=== PATIENT | male | born 1995 | race Caucasian/White ===

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

== ENCOUNTER 2023-09-18 16:54 | Observation (INO) ==
--- OUTSIDE RECORDS SUMMARY | 2023-09-18 17:00 | External Medical Summary | Summary of Care ---
Author Name Unknown Organization [facility] Address [address] [place] [address] Phone [phone] Care Team Providers Care Cardiology Technician Name Role Phone Dakota Meneses MD Primary Care Provider Reason for Visit * Reason Comments Outpatient Testing Encounter Details Date Type Department Care Team Description 05/13/2023 Laboratory Laboratory, [place] [address] [place] [address] [place] [address] [place] [address] GAURAV (generalized anxiety disorder) Allergies Active Allergy Reactions Severity Noted Date Comments Penicillins 07/07/1999 Azithromycin Rash Low 11/30/2007 documented as of this encounter (statuses as of 05/13/2023) Medications No known medicationsdocumented as of this encounter (statuses as of 05/13/2023) Active Problems Problem Noted Date Current moderate episode of major depressive disorder without prior episode 07/28/2020 Palpitations 10/04/2014 Pruritus 03/20/2013 Chigger bites 03/20/2013 HYPERTROPHY TONSILS - cryptic tonsils ADVANCE DIRECTIVE INFORMATION 06/04/2005 Overview: Not applicable (under age of 18) Other diseases of respiratory system, no t elsewhere classified Dyspnea and respiratory abnormality Overview: ICD-10 update of inactive term Sleep apnea Hypertrophy of tonsils and adenoids documented as of this encounter (statuses as of 05/13/2023) Resolved Problems Problem Noted Date Resolved Date Palpitations 10/04/2014 10/04/2014 documented as of this encounter (statuses as of 05/13/2023) Immunizations Name Administration Dates Next Due H1N1 2008 Influenza, Intranasal 08/17/2009 Meningococcal Conjugate Vaccine (Menactra/Menveo ) 10/03/2017,08/07/2013 Seasonal Influenza, Quadriva lent, No Preserve, 6 Mons & Above, IM 11/06/2021,10/03/2017 TD, Preservative Free 12/07/2021 TDAP (age 11 and older)(Adacel) 05/10/2011 Varicella Vaccine (Chicken Pox) 05/10/2011 documented as of this encounter Social History Tobacco Use Types Packs/Day Years Used Date Smoking Tobacco: Never Smokeless Tobacco: Never Comments:Mother smokes outsi de, Father's girlfriend smokes Alcohol Use Standard Drinks/Week Comments No 0 (1 standard drink = 0.6 oz pur e alcohol) Sex Assigned at Date Recorded Not on file Job Start Date Occupation Industry Not on file Not on file Not on file documented as of this encounter Plan of Treatment Pending Results Name Type Priority Associated Diagnoses Date /Time TSH WITH FREE T4 IF INDICATED Lab Routine GAURAV (generalized anxiety disorder) 05/13/2023 8:39 AM EDT Health Maintenance Due Date Last Done Comments COVID-19 Vaccine (#1) 01/02/1998 GARDASIL-HPV IMMUNIZATION SERIES (1 - Male 2-dose series) 2008 HIV Screening 2012 Hepatitis C Screening 2015 Depression Screening, Annual for Pts 12 and Over 06/30/2018 06/30/2017 Influenza Vaccine (FLU shot) (#1) 2023 11/06/2021, 10/03/2017 DTaP,Tdap,and Td Vaccines (8 - Td or Tdap) 12/07/2031 12/07/2021, 05/10/2011, 09/19/2001, Additional history exists Hepatitis B Completed 01/28/1998, 09/16, 1997 MENINGOCOCCAL (MENACTRA/MENVEO) Completed 10/03/2017, 08/07/2013 Pneumococcal Vaccine: Pediatrics (0 to 5 Years) and At-Risk Patients (6 to 64 Years) Aged Out No longer eligible based on patient's age to complete this topic documented as of this encounter Medical Devices Not on filedocumented as of this encounter Visit Diagnoses Diagnosis GAURAV (generalized anxiety disorder) Generalized anxiety disorder documented in this encounter Care Teams Cardiology Technician Relationship Specialty Start Date End Date Dakota Meneses MD [address] [place] [address] PCP - General 04/08/04 documented as of this encounter
--- OUTSIDE RECORDS SUMMARY | 2023-09-18 17:00 | External Medical Summary ---
Author Name Unknown Address Unknown Organization [id number]:[facility] [place] [address] [place] [address] Laboratory Report Ordering Provider Test Date Status DASHA MATT 05/13/2023 08:39:30 Final Observation Date Value Abnormality Reference (Units ) Status TSH 05/13/2023 08:39:30 0.69 0.27-4.20 (uIU/mL) Final Performing Location [facility] - [address] [place] [address]
[2023-09-18] MEDS ORDERED: ACETAMINOPHEN 1,000 MG/100 ML VIAL IV STA (17:13)
[2023-09-18] MEDS: SODIUM CHLORIDE 0.9% 1,000 ML IV SCH ×2 (17:19→17:57)
--- NOTE | 2023-09-18 17:24 | Emergency Department Note ---
History of Present Illness General Chief complaint: Syncope (Near Syncope) Stated complaint: SYNCOPE, FEVER, CHILLS, TINGLING HANDS, BODY ACHES Time Seen by Provider: 09/18/23 17:09 History of Present Illness Maximum Pain Intensity: 4 28-year-old male who presents to the emergency department accompanied by dad for evaluation of fever, body aches, near syncope. Patient states for the last 4 to 5 days he has been dealing with constipation. He took MiraLAX 3 times and had multiple bowel movements today. He states prior to that he had not had a bowel movement since Tuesday. He notes since 3 PM today he has been having fevers, chills, nausea, generalized bodyaches, and tingling in his hands. He reports feeling very lightheaded today and almost passing out prompting evaluation. He did not lose consciousness. He denies any recent cold-like symptoms including sinus congestion, cough, sore throat, ear pain. He denies chest pain, shortness of breath or abdominal pain. No diarrhea or urinary symptoms. Denies headache, neck pain, visual changes, light sensitivity, rashes anywhere. Father notes that patient appeared to be very lethargic and confused today prompting evaluation. Prior to today and his episodes of constipation, patient has been feeling well. He denies any significant past medical history and does not take any medications at home. Father does note that they have an outside cat that sleeps with the son and there is a chance for tick bites. No other known sick contacts. He reports an allergy to penicillin and azithromycin with reaction of a rash. He has not taken anything prior to arrival. Home Medications Medication Instructions Recorded Confirmed Type acetaminophen 500 mg tablet 1,000 mg PO Q6H PRN Fever Or Pain 05/24/20 09/18/23 History (Tylenol Extra Strength) diphenhydramine HCl 25 mg capsule 50 mg PO Q6H PRN Allergic Reaction 05/24/20 09/18/23 History (Benadryl) ibuprofen 200 mg tablet 800 mg PO Q8H PRN Fever Or Pain 05/24/20 09/18/23 History polyethylene glycol 3350 17 17 g PO DAILY 09/18/23 09/18/23 History gram/dose oral powder (Miralax) doxycycline hyclate 100 mg capsule 100 mg PO BID #20 caps 09/20/23 Rx Allergies Allergy/AdvReac Type Severity Reaction Status Date / Time Penicillins Allergy Intermediate Rash Verified 09/18/23 18:56 azithromycin [From Zithromax] Allergy Unknown Unknown Verified 09/18/23 18:56 Past Med/Surg History Medical History (Updated 09/20/23 @ 15:19 by Greg Kebede MD) Palpitations Cryptic tonsil Sleep apnea Depression Nausea, vomiting, and diarrhea Surgical History No pertinent past surgical history Family History Other Crohn's disease Hypertension Social History Smoking Status: Never smoker Hx Alcohol Use: Yes Hx Substance Use: No Preferred Language: Malaysian Communication Ability: Effective History Teacher Required: No Beliefs That Will Affect Care: None Current Living Situation: Family Other Information That Helps Us Care for You: No Feels Safe at Home: Yes Safety Concerns: Feels Safe At This Time Assistive Devices: None Physical Exam Vital Signs Vital Signs - 24 hr 09/18/23 16:59 09/18/23 17:12 09/18/23 17:14 Temperature 37.8 C H 39.6 C H Temperature Source Temporal Artery Scan Oral Pulse Rate 106 H 105 H Pulse Rate [Left Finger] 105 H Pulse Rhythm Regular Pulse Strength Normal Respiratory Rate 20 26 H Respiratory Effort / Characteristics Non-Labored Spontaneous Respiratory Depth Normal Respiratory Pattern Regular Blood Pressure 94/47 L Blood Pressure Mean 62 Blood Pressure Position Sitting Pulse Oximetry 97 99 Oxygen Delivery Method Room Air Sepsis Recent Fever Within 48 Hours No Sepsis New/Unexplained Change in Mental Status No Sepsis Action Taken by Nursing Physician Notified Constitutional: alert and oriented x3. no acute distress. Lethargic, ill- appearing but nontoxic. HEENT: normocephalic, atraumatic. normal conjunctiva.PERRLA. EOM's grossly intact. TMs pearly hobson without effusion. Oropharynx widely patent. Posterior pharynx pink, posterior tonsils nonenlarged without exudate mucus membranes moist Neck: neck is supple, nontender. Midline C-spine nontender. No meningeal signs Respiratory: lungs are clear to auscultation without wheezes, rhonchi, or rales bilaterally. equal chest rise. normal respiratory effort, no accessory muscle use. Cardiovascular: normal heart sounds without murmur. regular rate and rhythm. GI: abdomen is soft, nondistended. Voluntary guarding. No focal tenderness. No palpable masses. No rebound tenderness or guarding. No CVA tenderness MSK: Moves all 4 extremities spontaneously. Strength +5 and equal throughout all 4 extremities Peripheral vascular: extremities warm and well perfused with palpable pulses. Neuro: without focal neuro deficits. GCS 15. Slow to answer questions but responds appropriately. Follows commands. CNII-XII intact. Speech clear, tongue midline, without facial droop. Strength equal throughout all for extremities. Psych:appropriate mood and affect. Course Administered Medications Discontinued Medications Acetaminophen (Acetaminophen 325 Mg Tab) 650 mg PO QID PRN PRN Reason: pain/fever Stop: 10/18/23 20:31 Last Admin: 09/19/23 11:16 Dose: 650 mg Documented By: Admin: 09/19/23 01:28 Dose: 650 mg Documented By: Doxycycline Hyclate (Doxycycline Hyclate 100 Mg Cap) 100 mg PO BID [facility] Stop: 09/29/23 08:59 Last Admin: 09/20/23 09:23 Dose: 100 mg Documented By: Admin: 09/19/23 19:56 Dose: 100 mg Documented By: Admin: 09/19/23 08:18 Dose: 100 mg Documented By: MARIE Sodium Chloride (Nss) 1,000 mls @ 999 mls/hr IV .Q1H1M MARSHA Stop: 09/18/23 19:15 Last Infusion: 09/18/23 19:16 Dose: Infused Documented By: Admin: 09/18/23 17:57 Dose: 999 mls/hr Documented By: Infusion: 09/18/23 17:57 Dose: Infused Documented By: Admin: 09/18/23 17:19 Dose: 999 mls/hr Documented By: HERB Acetaminophen (Ofirmev) 1,000 mg in 100 mls @ 400 mls/hr IV NOW STA Stop: 09/18/23 17:27 Last Infusion: 09/18/23 17:43 Dose: Infused Documented By: Admin: 09/18/23 17:23 Dose: 400 mls/hr Documented By: JOVON Vancomycin HCl 1,500 mg/ (Sodium Chloride) 530 mls @ 200 mls/hr IV NOW ONE Stop: 09/18/23 20:09 Last Infusion: 09/18/23 22:40 Dose: Infused Documented By: Admin: 09/18/23 18:51 Dose: 200 mls/hr Documented By: HERB Cefepime HCl (Maxipime) 2,000 mg in 20 mls @ 5 mls/min IV NOW STA; Protocol Stop: 09/18/23 17:34 Last Admin: 09/18/23 17:44 Dose: 5 mls/min Documented By: JOVON Doxycycline Hyclate 100 mg/ (Dextrose) 100 mls @ 50 mls/hr IV NOW STA Stop: 09/18/23 21:43 Last Infusion: 09/19/23 01:25 Dose: Infused Documented By: Admin: 09/18/23 21:06 Dose: 50 mls/hr Documented By: Magnesium Sulfate/Dextrose (Magnesium Sulfate / D5w) 1 gm in 100 mls @ 50 mls/hr IV ONE ONE Stop: 09/18/23 21:59 Last Infusion: 09/19/23 01:25 Dose: Infused Documented By: Admin: 09/18/23 22:08 Dose: 50 mls/hr Documented By: Potassium Chloride/Sodium Chloride (Normal Saline W/20 Meq Kcl) 20 meq in 1,000 mls @ 100 mls/hr IV .Q10H ONE; Protocol Stop: 09/19/23 05:38 Last Infusion: 09/19/23 07:10 Dose: Infused Documented By: Admin: 09/18/23 21:06 Dose: 100 mls/hr Documented By: Magnesium Sulfate/Dextrose (Magnesium Sulfate / D5w) 1 gm in 100 mls @ 50 mls/hr IV ONE ONE Stop: 09/19/23 00:14 Last Infusion: 09/19/23 03:24 Dose: Infused Documented By: Admin: 09/19/23 01:31 Dose: 50 mls/hr Documented By: Potassium Chloride/Sodium Chloride (Normal Saline W/20 Meq Kcl) 20 meq in 1,000 mls @ 100 mls/hr IV .Q10H ONE; Protocol Stop: 09/19/23 15:59 Last Infusion: 09/19/23 17:41 Dose: Infused Documented By: Admin: 09/19/23 07:16 Dose: 100 mls/hr Documented By: MARIE Ceftriaxone Sodium 1,000 mg/ (Dextrose) 50 mls @ 100 mls/hr IV Q24H MARSHA; Protocol Stop: 09/21/23 17:14 Last Infusion: 09/20/23 17:13 Dose: Infused Documented By: Admin: 09/20/23 16:39 Dose: 100 mls/hr Documented By: Infusion: 09/19/23 19:24 Dose: Infused Documented By: Admin: 09/19/23 18:23 Dose: 100 mls/hr Documented By: RIVERA Sodium Chloride (Nss) 1,000 mls @ 125 mls/hr IV .Q8H MARSHA Stop: 09/20/23 11:59 Last Infusion: 09/20/23 12:07 Dose: Infused Documented By: Admin: 09/20/23 03:58 Dose: 125 mls/hr Documented By: Infusion: 09/20/23 03:58 Dose: Infused Documented By: Admin: 09/19/23 20:10 Dose: 125 mls/hr Documented By: JERI Sodium Chloride (Nss) 500 mls @ 999 mls/hr IV .Q31M ONE Stop: 09/19/23 19:50 Last Infusion: 09/19/23 20:11 Dose: Infused Documented By: Admin: 09/19/23 19:40 Dose: 999 mls/hr Documented By: JERI Ibuprofen (Ibuprofen 200 Mg Tab) 200 mg PO Q6H PRN PRN Reason: pain not relieved by tylenol Stop: 10/18/23 20:31 Last Admin: 09/19/23 03:22 Dose: 200 mg Documented By: AKANKSHA Ibuprofen (Ibuprofen 600 Mg Tab) 600 mg PO Q6H PRN PRN Reason: Moderate Pain (Scale 4, 5, 6) Stop: 10/18/23 20:31 Last Admin: 09/19/23 17:46 Dose: 600 mg Documented By: CHIRAG Ioversol (Optiray 320 500ml) 90 ml IV ONCE ONE Stop: 09/18/23 18:40 Last Admin: 09/18/23 18:39 Dose: 90 ml Documented By: SANDHYA Potassium Chloride (Potassium Chloride Crtab 20 Meq Tabcr) 40 meq PO NOW STA Stop: 09/18/23 19:39 Last Admin: 09/18/23 20:29 Dose: 40 meq Documented By: Senna/Docusate Sodium (Docusate Sodium/Senna 50/8.6mg Tab) 1 tab PO QAM MARSHA Stop: 10/19/23 08:59 Last Admin: 09/20/23 09:23 Dose: 1 tab Documented By: Admin: 09/19/23 08:18 Dose: 1 tab Documented By: MARIE Medical Decision Making Differential Diagnosis Pneumonia, diverticulitis, appendicitis, urinary tract infection, acute cholecystitis, meningitis, sepsis, electrolyte abnormalities, anemia, tickborne illness as well as other pathology Laboratory Data Attestation: I reviewed the patient's lab results. 09/20/23 06:20 09/20/23 06:20 Lab Results 09/18/23 09/18/23 09/18/23 Range/Units 17:18 17:22 18:04 WBC 5.05 (4.8-10.8) K/ul RBC 5.07 (4.70-6.10) M/uL Hgb 15.4 (14.0-18.0) g/dl Hct 42.8 (42.0-52.0) % MCV 84.4 (80.0-100.0) fL MCH 30.4 (25.0-34.0) pg MCHC 36.0 (32.0-36.0) g/dL RDW Std Deviation 35.8 L (36.4-46.3) fL RDW Coeff of Howard 11.8 (11.5-14.5) % Plt Count 222 (130-400) K/uL MPV 9.4 (9.4-12.4) fL Immature Gran % (Auto) 0.2 % Neut % (Auto) 85.1 % Lymph % (Auto) 11.3 % [place] % (Auto) 2.4 % Eos % (Auto) 0.6 % Baso % (Auto) 0.4 % Neut # (Auto) 4.30 (1.40-6.50) K/uL Lymph # (Auto) 0.57 L (1.20-3.40) K/uL [place] # (Auto) 0.12 (0.11-0.59) K/uL Eos # (Auto) 0.03 (0.00-0.50) K/uL Baso # (Auto) 0.02 (0.00-0.20) K/uL Immature Gran # (Auto) 0.01 (0.01-0.20) K/uL Sodium 136 (136-145) mmol/L Potassium 3.4 L (3.5-5.1) mmol/L Chloride 101 (98-107) mmol/L Carbon Dioxide 24 (21-32) mmol/L Anion Gap 11 (3-11) BUN 23 (6-23) mg/dl Creatinine 1.03 (0.6-1.4) mg/dl Est Cr Clr Drug Dosing 91.6 ml/min Est GFR ( Amer) 115.7 ml/min Est GFR (Non-Af Amer) 99.8 ml/min BUN/Creatinine Ratio 22.3 H (10-20) Glucose 138 H (70-99(Fasting)) mg/dl Lactate 2.9 H* (0.4-2.0) mmol/L Calcium 8.9 (8.6-10.3) mg/dl Magnesium 1.5 L (1.7-2.4) mg/dl Total Bilirubin 1.2 H (0.2-1.0) mg/dl AST 20 (13-39) U/L ALT 30 (7-52) U/L Alkaline Phosphatase 62 (34-104) U/L Troponin I High Sens 3.6 (0-20) pg/ml Total Protein 6.7 (6.0-8.3) gm/dl Albumin 4.5 (3.4-5.0) gm/dl Globulin 2.2 L (2.5-4.0) gm/dl Albumin/Globulin Ratio 2.0 (0.9-2) Lipase 10 L (11-82) U/L Procalcitonin 0.14 (0-0.5) ng/ml TSH 1.278 (0.300-4.500) uIu/ml Urine Color Yellow Urine Appearance Clear (Clear) Urine pH 5.5 (4.5-7.5) Ur Specific Addy 1.024 (1.000-1.030) Urine Protein Negative (Negative) Urine Glucose (UA) Negative (Negative) Urine Ketones Negative (Negative) Urine Blood Negative (Negative) Urine Nitrite Negative (Negative) Urine Bilirubin Negative (Negative) Urine Urobilinogen Negative (Negative) Ur Leukocyte Esterase Negative (Negative) Adenovirus (PCR) Not Detected (NotDetected) Anaplasma Smear See Comment Babesia Smear See Comment B. pertussis DNA (PCR) Not Detected (NotDetected) B.parapertussis DNA PCR Not Detected (NotDetected) Lyme Disease IgG Ab Negative (Negative) Lyme Disease IgM Ab Equivocal A (Negative) C. pneumoniae DNA (PCR) Not Detected (NotDetected) Coronavirus OC43 (PCR) Not Detected (NotDetected) Coronavirus HKU1 (PCR) Not Detected (NotDetected) Coronavirus 229E (PCR) Not Detected (NotDetected) SARS-CoV-2 (PCR) Not Detected (NotDetected) Coronavirus NL63 (PCR) Not Detected (NotDetected) Monoscreen Negative (Negative) Human Metapneumovir PCR Not Detected (NotDetected) Influenza Type A (PCR) Not Detected (NotDetected) Influenza Type B (PCR) Not Detected (NotDetected) M. pneumoniae (PCR) Not Detected (NotDetected) Parainfluenza 1 (PCR) Not Detected (NotDetected) Parainfluenza 2 (PCR) Not Detected (NotDetected) Parainfluenza 3 (PCR) Not Detected (NotDetected) Parainfluenza 4 (PCR) Not Detected (NotDetected) RSV (PCR) Not Detected (NotDetected) Entero/Rhino (PCR) Not Detected (NotDetected) 09/18/23 Range/Units 19:04 WBC (4.8-10.8) K/ul RBC (4.70-6.10) M/uL Hgb (14.0-18.0) g/dl Hct (42.0-52.0) % MCV (80.0-100.0) fL MCH (25.0-34.0) pg MCHC (32.0-36.0) g/dL RDW Std Deviation (36.4-46.3) fL RDW Coeff of Howard (11.5-14.5) % Plt Count (130-400) K/uL MPV (9.4-12.4) fL Immature Gran % (Auto) % Neut % (Auto) % Lymph % (Auto) % [place] % (Auto) % Eos % (Auto) % Baso % (Auto) % Neut # (Auto) (1.40-6.50) K/uL Lymph # (Auto) (1.20-3.40) K/uL [place] # (Auto) (0.11-0.59) K/uL Eos # (Auto) (0.00-0.50) K/uL Baso # (Auto) (0.00-0.20) K/uL Immature Gran # (Auto) (0.01-0.20) K/uL Sodium (136-145) mmol/L Potassium (3.5-5.1) mmol/L Chloride (98-107) mmol/L Carbon Dioxide (21-32) mmol/L Anion Gap (3-11) BUN (6-23) mg/dl Creatinine (0.6-1.4) mg/dl Est Cr Clr Drug Dosing ml/min Est GFR ( Amer) ml/min Est GFR (Non-Af Amer) ml/min BUN/Creatinine Ratio (10-20) Glucose (70-99(Fasting)) mg/dl Lactate 1.1 (0.4-2.0) mmol/L Calcium (8.6-10.3) mg/dl Magnesium (1.7-2.4) mg/dl Total Bilirubin (0.2-1.0) mg/dl AST (13-39) U/L ALT (7-52) U/L Alkaline Phosphatase (34-104) U/L Troponin I High Sens (0-20) pg/ml Total Protein (6.0-8.3) gm/dl Albumin (3.4-5.0) gm/dl Globulin (2.5-4.0) gm/dl Albumin/Globulin Ratio (0.9-2) Lipase (11-82) U/L Procalcitonin (0-0.5) ng/ml TSH (0.300-4.500) uIu/ml Urine Color Urine Appearance (Clear) Urine pH (4.5-7.5) Ur Specific Addy (1.000-1.030) Urine Protein (Negative) Urine Glucose (UA) (Negative) Urine Ketones (Negative) Urine Blood (Negative) Urine Nitrite (Negative) Urine Bilirubin (Negative) Urine Urobilinogen (Negative) Ur Leukocyte Esterase (Negative) Adenovirus (PCR) (NotDetected) Anaplasma Smear Babesia Smear B. pertussis DNA (PCR) (NotDetected) B.parapertussis DNA PCR (NotDetected) Lyme Disease IgG Ab (Negative) Lyme Disease IgM Ab (Negative) C. pneumoniae DNA (PCR) (NotDetected) Coronavirus OC43 (PCR) (NotDetected) Coronavirus HKU1 (PCR) (NotDetected) Coronavirus 229E (PCR) (NotDetected) SARS-CoV-2 (PCR) (NotDetected) Coronavirus NL63 (PCR) (NotDetected) Monoscreen (Negative) Human Metapneumovir PCR (NotDetected) Influenza Type A (PCR) (NotDetected) Influenza Type B (PCR) (NotDetected) M. pneumoniae (PCR) (NotDetected) Parainfluenza 1 (PCR) (NotDetected) Parainfluenza 2 (PCR) (NotDetected) Parainfluenza 3 (PCR) (NotDetected) Parainfluenza 4 (PCR) (NotDetected) RSV (PCR) (NotDetected) Entero/Rhino (PCR) (NotDetected) Imaging Data Radiologist's Impression: Chest X-Ray 09/18/23 17:09 XR chest 1V portable HISTORY: fever COMPARISON: Chest and abdominal series 10/19/2016. FINDINGS: The lungs are clear. Cardiac silhouette is normal in size. No pleural effusions. No pneumothorax. IMPRESSION: No acute process. ACT 112: Negative or not required by law. Electronically signed by: Cortez Jaimes M.D. 09/18/2023 5:43 PM Abdomen/Pelvis CT 09/18/23 17:[address] WITH IV CONTRAST CT DOSE: 465.84 mGy.cm HISTORY: fever, constipation TECHNIQUE: Multiaxial CT images of the abdomen and pelvis were performed following the use of intravenous contrast. A dose lowering technique was utilized adhering to the principles of ALARA. COMPARISON STUDY: Abdomen and pelvis CT 10/20/2016. FINDINGS: The lung bases are clear. No pneumoperitoneum. No pneumatosis. No acute fractures. A 1 cm hypodense lesion within the right hepatic lobe. This favors a hemangioma. Minimal periportal edema. This could be due to overhydration. The main portal vein is patent. In the gallbladder, pancreas, spleen, and adrenal glands are unremarkable. The kidneys enhance normally. No hydronephrosis. No retroperitoneal or pelvic lymphadenopathy. Normal bladder. The prostate gland is normal in size. No pelvic free fluid. Normal caliber abdominal aorta. The IVC and main portal vein appear patent. No bowel wall thickening or obstruction. Normal appendix. Liquid stool within the colon. IMPRESSION: 1. No bowel wall thickening or obstruction. 2. Normal appendix. 3. No hydronephrosis. 4. Liquid stool within the colon. This could represent a mild diarrheal illness/gastroenteritis. ACT 112: Negative or not required by law. Electronically signed by: Cortez Jaimes M.D. 09/18/2023 6:52 PM MDM Narrative 28-year-old male who presents to the emergency department for evaluation of fevers, generalized body aches, and near syncope. Reviewed pertinent visits and past medical history performed. Vital signs in ED demonstrate initial febrile at 39.6, tachycardic at 105 and hypotensive 94/47. Patient seen and evaluated in room C7. History and physical exam performed. IV access was established and labs and imaging were obtained. Sepsis workup initiated. He was given 2 L bolus IV fluids and Tylenol for fever. He was placed on surveillance monitor at time my evaluation demonstrates normal sinus rhythm at a rate of 105 bpm. CBC without leukocytosis or acute anemia. CMP without significant electrolyte abnormalities. Renal function within normal limits. LFTs and lipase unremarkable. Total bilirubin mildly elevated at 1.2. Lactate elevated at 2.9. EKG demonstrates normal sinus tachycardia at a rate of 112 bpm without ischemic changes. High-sensitivity troponin nonactionable. Blood cultures obtained and pending. CXR without evidence of focal consolidation. Urinalysis negative for infection or blood. [employer] respiratory panel negative. Monoscreen negative. Anaplasmosis and babesiosis screening negative, PCR testing pending. Lyme screen IgG negative, IgM equivocal. CT abdomen/pelvis was performed given sepsis and recent constipation. This was interpreted by radiology as above and relatively unremarkable. No evidence of bowel thickening or obstruction. Normal appendix. Kidneys, gallbladder, pancreas unremarkable. Patient was given empiric IV vancomycin and cefepime with his penicillin allergy. Patient was reassessed on multiple occasions throughout ED stay. He remained stable without new concerns. He does note mild improvement in his symptoms following therapies. Vital signs continue to demonstrate tachycardia and hypotensive. Fever did respond to the Tylenol to 37. Workup today appears to be consistent with SIRS/sepsis of unknown etiology. We discussed admission to the hospital for further workup and management. They were agreeable to plan. Case was discussed with hospitalist, Dr. Alvarado who graciously accepted patient to their service for further management. He was admitted in stable condition. Case was discussed with ED attending, Dr. Mckenzie who agrees with workup and treatment plan Impression & Plan Severe sepsis, Nausea, vomiting, and diarrhea, Fever, Acute lactic acidosis, Acute Lyme disease Discharge Plan Visit Data Chief Complaint: Syncope (Near Syncope) Stated Complaint: SYNCOPE, FEVER, CHILLS, TINGLING HANDS, BODY ACHES ED Provider: Lennox Mckenzie ED Midlevel Provider: Katiana Smith Discharge Problem: Severe sepsis, Nausea, vomiting, and diarrhea, Fever, Acute lactic acidosis, Acute Lyme disease Patient Disposition: Admitted As Inpatient Condition: Good Discharge Instructions Interventions: ED Discharge Assessment Last Done: 09/19/23 16:21
[2023-09-18] MEDS ORDERED: VANCOMYCIN CONSULT ACTIVE PRN (17:31)
[2023-09-18] MEDS ORDERED: CEFEPIME 2,000 MG/20 ML VIAL IV STA (17:31)
[2023-09-18] MEDS ORDERED: VANCOMYCIN HCL 1,500 MG in SODIUM CHLORIDE 0.9% 500 ML IV ONE (17:31)
[2023-09-18 17:39] LABS: Basophils # (auto) 0.02 K/uL (0.00-0.20); Basophils % (auto) 0.4 %; Eosinophils # (auto) 0.03 K/uL (0.00-0.50); Eosinophils % (auto) 0.6 %; Hematocrit (blood only) 42.8 % (42.0-52.0); Hemoglobin 15.4 g/dl (14.0-18.0); Immature Granulocytes # (auto) 0.01 K/uL (0.01-0.20); Immature Granulocytes % (auto) 0.2 %; Lymphocytes # (auto) 0.57 K/uL (1.20-3.40); Lymphocytes % (auto) 11.3 %; Mean Corpuscular Hemoglobin 30.4 pg (25.0-34.0); Mean Corpuscular Volume 84.4 fL (80.0-100.0); Mean Platelet Volume 9.4 fL (9.4-12.4); Monocytes # (auto) 0.12 K/uL (0.11-0.59); Monocytes % (auto) 2.4 %; Neutrophils % (auto) 85.1 %; Platelet Count 222 K/uL (130-400); RDW Coefficient of Variation 11.8 % (11.5-14.5); RDW Standard Deviation 35.8 fL (36.4-46.3); Red Blood Count 5.07 M/uL (4.70-6.10); White Blood Count 5.05 K/ul (4.8-10.8)
--- NOTE | 2023-09-18 17:44 | XRay Report ---
XR chest 1V portable HISTORY: fever COMPARISON: Chest and abdominal series 10/19/2016. FINDINGS: The lungs are clear. Cardiac silhouette is normal in size. No pleural effusions. No pneumot horax. IMPRESSION: No acute process. ACT 112: Negative or not required by law. Electronically signed by: Cortez Jaimes M.D. 09/18/2023 5:43 PM
[2023-09-18 17:54] LABS: Albumin Level 4.5 gm/dl (3.4-5.0); BUN Creatinine Ratio 22.3 (10-20); Bilirubin,Total 1.2 mg/dl (0.2-1.0); Calcium 8.9 mg/dl (8.6-10.3); Creatinine Clr Calc Pharmacy 91.6 ml/min; Est GFR (African American) 115.7 ml/min; Est GFR (Non-African American) 99.8 ml/min; Globulin 2.2 gm/dl (2.5-4.0); Potassium 3.4 mmol/L (3.5-5.1); Total Protein 6.7 gm/dl (6.0-8.3)
[2023-09-18 18:01] LABS: Troponin I High Sensitivity 3.6 pg/ml (0-20)
[2023-09-18 18:12] LABS: Procalcitonin 0.14 ng/ml (0-0.5)
[2023-09-18 18:17] LABS: Lyme Ab IgG w/WB Rflx Negative (Negative)
[2023-09-18 18:18] LABS: Adenovirus PCR Not Detected (NotDetected); Bordetella parapertussis PCR Not Detected (NotDetected); Bordetella pertussis PCR Not Detected (NotDetected); Chlamydia pneumoniae PCR Not Detected (NotDetected); Coronavirus 229E PCR Not Detected (NotDetected); Coronavirus CoV-2 (COVID19)PCR Not Detected (NotDetected); Coronavirus HKU1 PCR Not Detected (NotDetected); Coronavirus NL63 PCR Not Detected (NotDetected); Coronavirus OC43PCR Not Detected (NotDetected); Human Metapneumovirus PCR Not Detected (NotDetected); Influenza A PCR Not Detected (NotDetected); Influenza B PCR Not Detected (NotDetected); Mycoplasma pneumoniae PCR Not Detected (NotDetected); Parainfluenza Virus 1 PCR Not Detected (NotDetected); Parainfluenza Virus 2 PCR Not Detected (NotDetected); Parainfluenza Virus 3 PCR Not Detected (NotDetected); Parainfluenza Virus 4 PCR Not Detected (NotDetected); Respiratory Syncytial VirusPCR Not Detected (NotDetected); Rhinovirus/Enterovirus PCR Not Detected (NotDetected)
[2023-09-18 18:33] LABS: Lyme Ab IgM w/WB Rflx Equivocal (Negative)
[2023-09-18] MEDS ORDERED: OPTIRAY 320 500ml IV ONE (18:39)
--- NOTE | 2023-09-18 18:54 | CT Scan Report ---
ABDOMEN AND PELVIS CT WITH IV CONTRAST CT DOSE: 465.84 mGy.cm HISTORY: fever, constipation TECHNIQUE: Multiaxial CT images of the abdomen and pelvis were performed following the use of intrave nous contrast. A dose lowering technique was utilized adhering to the principles of ALARA. COMPARISON STUDY: Abdomen and pelvis CT 10/20/2016. FINDINGS: The lung bases are clear. No pneumoperitoneum. No pneumatosis. No acute fractures. A 1 cm h ypodense lesion within the right hepatic lobe. This favors a hemangioma. Minimal periportal edema. Th is could be due to overhydration. The main portal vein is patent. In the gallbladder, pancreas, splee n, and adrenal glands are unremarkable. The kidneys enhance normally. No hydronephrosis. No retroperi toneal or pelvic lymphadenopathy. Normal bladder. The prostate gland is normal in size. No pelvic rosalina e fluid. Normal caliber abdominal aorta. The IVC and main portal vein appear patent. No bowel wall th ickening or obstruction. Normal appendix. Liquid stool within the colon. IMPRESSION: 1. No bowel wall thickening or obstruction. 2. Normal appendix. 3. No hydronephrosis. 4. Liquid stool within the colon. This could represent a mild diarrheal illness/gastroenteritis. ACT 112: Negative or not required by law. Electronically signed by: Cortez Jaimes M.D. 09/18/2023 6:52 PM
[2023-09-18 19:03] LABS: Appearance Urine Clear (Clear); Bilirubin Urine Negative (Negative); Blood Urine Negative (Negative); Color Urine Yellow; Glucose Urine UA Negative (Negative); Ketones Urine Negative (Negative); Leukocyte Esterase Urine Negative (Negative); Nitrite Urine Negative (Negative); Protein Urine Negative (Negative); Specific Gravity Urine 1.024 (1.000-1.030); Urobilinogen Urine Negative (Negative); pH Urine 5.5 (4.5-7.5)
[2023-09-18] MEDS ORDERED: POTASSIUM CHLORIDE CRTAB 20 MEQ TABCR PO STA (19:38)
[2023-09-18] MEDS ORDERED: NSS + 20MEQ KCL 20 MEQ/1,000 ML BAG IV ONE (19:39)
[2023-09-18] MEDS ORDERED: DOXYCYCLINE HYCLATE 100 MG in DEXTROSE 5% MINI-B 100 ML IV STA (19:44)
[2023-09-18] MEDS ORDERED: MAGNESIUM SULFATE / D5W 1 GM/100 ML BAG IV ONE ×2 (20:00→22:15)
[2023-09-18 20:05] LABS: Magnesium 1.5 mg/dl (1.7-2.4)
[2023-09-18 20:22] LABS: Thyroid Stimulating Hormone 1.278 uIu/ml (0.300-4.500)
--- NOTE | 2023-09-18 20:24 | History & Physical Report ---
Date of Service September 18, 2023 Assessment & Plan (1) Severe sepsis: Plan: SIRS plus lactic acidosis Secondary to tickborne infection Painless LGIB on wiping possible hemorrhoidal bleed following constipation symptoms Hyperglycemia rule out DM Medical telemetry CS, Doxycycline IVF GI consult if with LGIB progression Bowel regimen Check hemoglobin A1c DVT prophylaxis. SCDs Re: L GIB Full code Total critical care time was 40 minutes. Text document was generated using [employer] voice recognition software. It may contain grammatical or spelling errors. Kindly contact undersigned for clarification of any documentation item in question. History of Present Illness Chief Complaint: Fever, chills, near syncope Primary Care Provider: Dakota Meneses MD History obtained from patient, family, and records. Medical history significant for mood disorder. 4 days history of constipation symptoms more than usual. No actual abdominal pain. 2 bowel movements after MiraLAX intake today. Hematochezia on wiping. No hematemesis or coffee-ground emesis. Patient later noted fever, chills, generalized body aches, nausea, and tingling of the hands. No chest pain, no cough, no SOB, no headache symptoms. Patient like he was going to pass out. No recollection of recent tick bites although there are ticks at patient's home. SBP 90s upon arrival at the ER. Vancomycin and cefepime administered at the ER for sepsis. Medical History as above Surgical History : None Family History : IBD, alcoholism Personal/Social history : Non-smoker, no EtOH intake, [employer] employee Allergies Allergy/AdvReac Type Severity Reaction Status Date / Time Penicillins Allergy Intermediate Rash Verified 09/18/23 18:56 azithromycin [From Zithromax] Allergy Unknown Unknown Verified 09/18/23 18:56 Home Medications Medication Instructions Recorded Confirmed Type acetaminophen 500 mg tablet 1,000 mg PO Q6H PRN Fever Or Pain 05/24/20 09/18/23 History (Tylenol Extra Strength) diphenhydramine HCl 25 mg capsule 50 mg PO Q6H PRN Allergic Reaction 05/24/20 09/18/23 History (Benadryl) ibuprofen 200 mg tablet 800 mg PO Q8H PRN Fever Or Pain 05/24/20 09/18/23 History polyethylene glycol 3350 17 17 g PO DAILY 09/18/23 09/18/23 History gram/dose oral powder (Miralax) Past Med/Surg History Medical History Nausea, vomiting, and diarrhea Surgical History No pertinent past surgical history Family History Other Crohn's disease Hypertension Social History Smoking Status: Never smoker Hx Alcohol Use: Yes Hx Substance Use: No Preferred Language: Bermudian Communication Ability: Effective After School Program Assistant Required: No Beliefs That Will Affect Care: None Current Living Situation: Family Other Information That Helps Us Care for You: No Feels Safe at Home: Yes Safety Concerns: Feels Safe At This Time Assistive Devices: None Review of Systems Review of Systems: As per HPI, all other systems reviewed and negative Physical Exam Physical Exam: GENERAL: Comfortable, pleasant, no respiratory distress SKIN: Normal color, warm HEENT: [place] palpebral conjunctivae, no ptosis, dry buccal mucosa NECK : Supple, no tenderness CHEST : CTA, no tenderness HEART : Tachycardic, no obvious murmurs ABDOMEN: Some distention, nontender EXTREMITIES : No LE swelling/tenderness, no other conspicuous deformities noted NEUROLOGIC : Coherent, no facial asymmetry, no other gross focality Results & Data Results & Data Vital Signs (Past 12 Hours) Vital Signs Temp Pulse Pulse Resp BP Pulse Ox O2 Del Method 09/18/23 18:55 37.5 C 09/18/23 18:30 130 H 25 H 94 09/18/23 18:30 94/53 L 09/18/23 18:20 119 H 23 98 09/18/23 18:15 105/49 L 09/18/23 18:15 117 H 23 98 09/18/23 18:10 116 H 17 97 09/18/23 18:00 117 H 24 96 09/18/23 18:00 99/51 L 09/18/23 17:50 121 H 21 99 09/18/23 17:45 111/57 L 09/18/23 17:45 124 H 23 98 09/18/23 17:40 117 H 19 99 09/18/23 17:30 115 H 32 H 98 09/18/23 17:30 96/67 L 09/18/23 17:23 110 H 21 100 09/18/23 17:23 119/71 09/18/23 17:22 110 H 17 99 09/18/23 17:22 92/70 L 09/18/23 17:14 105 H 09/18/23 17:12 39.6 C H 105 H 26 H 99 09/18/23 16:59 37.8 C H 106 H 20 94/47 L 97 Room Air Laboratory Results Laboratory Results WBC 5.05 K/ul (4.8-10.8) 09/18/23 17:18 RBC 5.07 M/uL (4.70-6.10) 09/18/23 17:18 Hgb 15.4 g/dl (14.0-18.0) 09/18/23 17:18 Hct 42.8 % (42.0-52.0) 09/18/23 17:18 MCV 84.4 fL (80.0-100.0) 09/18/23 17:18 MCH 30.4 pg (25.0-34.0) 09/18/23 17:18 MCHC 36.0 g/dL (32.0-36.0) 09/18/23 17:18 RDW Std Deviation 35.8 fL (36.4-46.3) L 09/18/23 17:18 RDW Coeff of Howard 11.8 % (11.5-14.5) 09/18/23 17:18 Plt Count 222 K/uL (130-400) 09/18/23 17:18 MPV 9.4 fL (9.4-12.4) 09/18/23 17:18 Immature Gran % (Auto) 0.2 % 09/18/23 17:18 Neut % (Auto) 85.1 % 09/18/23 17:18 Lymph % (Auto) 11.3 % 09/18/23 17:18 Lyon % (Auto) 2.4 % 09/18/23 17:18 Eos % (Auto) 0.6 % 09/18/23 17:18 Baso % (Auto) 0.4 % 09/18/23 17:18 Neut # (Auto) 4.30 K/uL (1.40-6.50) 09/18/23 17:18 Lymph # (Auto) 0.57 K/uL (1.20-3.40) L 09/18/23 17:18 [place] # (Auto) 0.12 K/uL (0.11-0.59) 09/18/23 17:18 Eos # (Auto) 0.03 K/uL (0.00-0.50) 09/18/23 17:18 Baso # (Auto) 0.02 K/uL (0.00-0.20) 09/18/23 17:18 Immature Gran # (Auto) 0.01 K/uL (0.01-0.20) 09/18/23 17:18 Sodium 136 mmol/L (136-145) 09/18/23 17:18 Potassium 3.4 mmol/L (3.5-5.1) L 09/18/23 17:18 Chloride 101 mmol/L (98-107) 09/18/23 17:18 Carbon Dioxide 24 mmol/L (21-32) 09/18/23 17:18 Anion Gap 11 (3-11) 09/18/23 17:18 BUN 23 mg/dl (6-23) 09/18/23 17:18 Creatinine 1.03 mg/dl (0.6-1.4) 09/18/23 17:18 Est Cr Clr Drug Dosing 91.6 ml/min 09/18/23 17:18 Est GFR ( Amer) 115.7 ml/min 09/18/23 17:18 Est GFR (Non-Af Amer) 99.8 ml/min 09/18/23 17:18 BUN/Creatinine Ratio 22.3 (10-20) H 09/18/23 17:18 Glucose 138 mg/dl (70-99(Fasting)) H 09/18/23 17:18 Lactate 1.1 mmol/L (0.4-2.0) 09/18/23 19:04 Calcium 8.9 mg/dl (8.6-10.3) 09/18/23 17:18 Magnesium 1.5 mg/dl (1.7-2.4) L 09/18/23 17:18 Total Bilirubin 1.2 mg/dl (0.2-1.0) H 09/18/23 17:18 AST 20 U/L (13-39) 09/18/23 17:18 ALT 30 U/L (7-52) 09/18/23 17:18 Alkaline Phosphatase 62 U/L (34-104) 09/18/23 17:18 Troponin I High Sens 3.6 pg/ml (0-20) 09/18/23 17:18 Total Protein 6.7 gm/dl (6.0-8.3) 09/18/23 17:18 Albumin 4.5 gm/dl (3.4-5.0) 09/18/23 17:18 Globulin 2.2 gm/dl (2.5-4.0) L 09/18/23 17:18 Albumin/Globulin Ratio 2.0 (0.9-2) 09/18/23 17:18 Lipase 10 U/L (11-82) L 09/18/23 17:18 Procalcitonin 0.14 ng/ml (0-0.5) 09/18/23 17:18 TSH 1.278 uIu/ml (0.300-4.500) 09/18/23 17:18 Urine Color Yellow 09/18/23 18:04 Urine Appearance Clear (Clear) 09/18/23 18:04 Urine pH 5.5 (4.5-7.5) 09/18/23 18:04 Ur Specific [place] 1.024 (1.000-1.030) 09/18/23 18:04 Urine Protein Negative (Negative) 09/18/23 18:04 Urine Glucose (UA) Negative (Negative) 09/18/23 18:04 Urine Ketones Negative (Negative) 09/18/23 18:04 Urine Blood Negative (Negative) 09/18/23 18:04 Urine Nitrite Negative (Negative) 09/18/23 18:04 Urine Bilirubin Negative (Negative) 09/18/23 18:04 Urine Urobilinogen Negative (Negative) 09/18/23 18:04 Ur Leukocyte Esterase Negative (Negative) 09/18/23 18:04 Adenovirus (PCR) Not Detected (NotDetected) 09/18/23 17:22 Anaplasma Smear See Comment 09/18/23 17:18 Babesia Smear See Comment 09/18/23 17:18 B. pertussis DNA (PCR) Not Detected (NotDetected) 09/18/23 17:22 B.parapertussis DNA PCR Not Detected (NotDetected) 09/18/23 17:22 Lyme Disease IgG Ab Negative (Negative) 09/18/23 17:18 Lyme Disease IgM Ab Equivocal (Negative) A 09/18/23 17:18 C. pneumoniae DNA (PCR) Not Detected (NotDetected) 09/18/23 17:22 Coronavirus OC43 (PCR) Not Detected (NotDetected) 09/18/23 17:22 Coronavirus HKU1 (PCR) Not Detected (NotDetected) 09/18/23 17:22 Coronavirus 229E (PCR) Not Detected (NotDetected) 09/18/23 17:22 SARS-CoV-2 (PCR) Not Detected (NotDetected) 09/18/23 17:22 Coronavirus NL63 (PCR) Not Detected (NotDetected) 09/18/23 17:22 Monoscreen Negative (Negative) 09/18/23 17:18 Human Metapneumovir PCR Not Detected (NotDetected) 09/18/23 17:22 Influenza Type A (PCR) Not Detected (NotDetected) 09/18/23 17:22 Influenza Type B (PCR) Not Detected (NotDetected) 09/18/23 17:22 M. pneumoniae (PCR) Not Detected (NotDetected) 09/18/23 17:22 Parainfluenza 1 (PCR) Not Detected (NotDetected) 09/18/23 17:22 Parainfluenza 2 (PCR) Not Detected (NotDetected) 09/18/23 17:22 Parainfluenza 3 (PCR) Not Detected (NotDetected) 09/18/23 17:22 Parainfluenza 4 (PCR) Not Detected (NotDetected) 09/18/23 17:22 RSV (PCR) Not Detected (NotDetected) 09/18/23 17:22 Entero/Rhino (PCR) Not Detected (NotDetected) 09/18/23 17:22 Impressions Chest X-Ray 09/18/23 17:09 XR chest 1V portable HISTORY: fever COMPARISON: Chest and abdominal series 10/19/2016. FINDINGS: The lungs are clear. Cardiac silhouette is normal in size. No pleural effusions. No pneumothorax. IMPRESSION: No acute process. ACT 112: Negative or not required by law. Electronically signed by: Cortez Jaimes M.D. 09/18/2023 5:43 PM Abdomen/Pelvis CT 09/18/23 17:[address] WITH IV CONTRAST CT DOSE: 465.84 mGy.cm HISTORY: fever, constipation TECHNIQUE: Multiaxial CT images of the abdomen and pelvis were performed following the use of intravenous contrast. A dose lowering technique was utilized adhering to the principles of ALARA. COMPARISON STUDY: Abdomen and pelvis CT 10/20/2016. FINDINGS: The lung bases are clear. No pneumoperitoneum. No pneumatosis. No acute fractures. A 1 cm hypodense lesion within the right hepatic lobe. This favors a hemangioma. Minimal periportal edema. This could be due to overhydration. The main portal vein is patent. In the gallbladder, pancreas, spleen, and adrenal glands are unremarkable. The kidneys enhance normally. No hydronephrosis. No retroperitoneal or pelvic lymphadenopathy. Normal bladder. The prostate gland is normal in size. No pelvic free fluid. Normal caliber abdominal aorta. The IVC and main portal vein appear patent. No bowel wall thickening or obstruction. Normal appendix. Liquid stool within the colon. IMPRESSION: 1. No bowel wall thickening or obstruction. 2. Normal appendix. 3. No hydronephrosis. 4. Liquid stool within the colon. This could represent a mild diarrheal illness/gastroenteritis. ACT 112: Negative or not required by law. Electronically signed by: Cortez Jaimes M.D. 09/18/2023 6:52 PM Diagnostic Findings Laboratory Results WBC 5.05 K/ul (4.8-10.8) 09/18/23 17:18 RBC 5.07 M/uL (4.70-6.10) 09/18/23 17:18 Hgb 15.4 g/dl (14.0-18.0) 09/18/23 17:18 Hct 42.8 % (42.0-52.0) 09/18/23 17:18 MCV 84.4 fL (80.0-100.0) 09/18/23 17:18 MCH 30.4 pg (25.0-34.0) 09/18/23 17:18 MCHC 36.0 g/dL (32.0-36.0) 09/18/23 17:18 RDW Std Deviation 35.8 fL (36.4-46.3) L 09/18/23 17:18 RDW Coeff of Howard 11.8 % (11.5-14.5) 09/18/23 17:18 Plt Count 222 K/uL (130-400) 09/18/23 17:18 MPV 9.4 fL (9.4-12.4) 09/18/23 17:18 Immature Gran % (Auto) 0.2 % 09/18/23 17:18 Neut % (Auto) 85.1 % 09/18/23 17:18 Lymph % (Auto) 11.3 % 09/18/23 17:18 Lyon % (Auto) 2.4 % 09/18/23 17:18 Eos % (Auto) 0.6 % 09/18/23 17:18 Baso % (Auto) 0.4 % 09/18/23 17:18 Neut # (Auto) 4.30 K/uL (1.40-6.50) 09/18/23 17:18 Lymph # (Auto) 0.57 K/uL (1.20-3.40) L 09/18/23 17:18 Lyon # (Auto) 0.12 K/uL (0.11-0.59) 09/18/23 17:18 Eos # (Auto) 0.03 K/uL (0.00-0.50) 09/18/23 17:18 Baso # (Auto) 0.02 K/uL (0.00-0.20) 09/18/23 17:18 Immature Gran # (Auto) 0.01 K/uL (0.01-0.20) 09/18/23 17:18 Sodium 136 mmol/L (136-145) 09/18/23 17:18 Potassium 3.4 mmol/L (3.5-5.1) L 09/18/23 17:18 Chloride 101 mmol/L (98-107) 09/18/23 17:18 Carbon Dioxide 24 mmol/L (21-32) 09/18/23 17:18 Anion Gap 11 (3-11) 09/18/23 17:18 BUN 23 mg/dl (6-23) 09/18/23 17:18 Creatinine 1.03 mg/dl (0.6-1.4) 09/18/23 17:18 Est Cr Clr Drug Dosing 91.6 ml/min 09/18/23 17:18 Est GFR ( Amer) 115.7 ml/min 09/18/23 17:18 Est GFR (Non-Af Amer) 99.8 ml/min 09/18/23 17:18 BUN/Creatinine Ratio 22.3 (10-20) H 09/18/23 17:18 Glucose 138 mg/dl (70-99(Fasting)) H 09/18/23 17:18 Lactate 1.1 mmol/L (0.4-2.0) 09/18/23 19:04 Calcium 8.9 mg/dl (8.6-10.3) 09/18/23 17:18 Magnesium 1.5 mg/dl (1.7-2.4) L 09/18/23 17:18 Total Bilirubin 1.2 mg/dl (0.2-1.0) H 09/18/23 17:18 AST 20 U/L (13-39) 09/18/23 17:18 ALT 30 U/L (7-52) 09/18/23 17:18 Alkaline Phosphatase 62 U/L (34-104) 09/18/23 17:18 Troponin I High Sens 3.6 pg/ml (0-20) 09/18/23 17:18 Total Protein 6.7 gm/dl (6.0-8.3) 09/18/23 17:18 Albumin 4.5 gm/dl (3.4-5.0) 09/18/23 17:18 Globulin 2.2 gm/dl (2.5-4.0) L 09/18/23 17:18 Albumin/Globulin Ratio 2.0 (0.9-2) 09/18/23 17:18 Lipase 10 U/L (11-82) L 09/18/23 17:18 Procalcitonin 0.14 ng/ml (0-0.5) 09/18/23 17:18 TSH 1.278 uIu/ml (0.300-4.500) 09/18/23 17:18 Urine Color Yellow 09/18/23 18:04 Urine Appearance Clear (Clear) 09/18/23 18:04 Urine pH 5.5 (4.5-7.5) 09/18/23 18:04 Ur Specific [place] 1.024 (1.000-1.030) 09/18/23 18:04 Urine Protein Negative (Negative) 09/18/23 18:04 Urine Glucose (UA) Negative (Negative) 09/18/23 18:04 Urine Ketones Negative (Negative) 09/18/23 18:04 Urine Blood Negative (Negative) 09/18/23 18:04 Urine Nitrite Negative (Negative) 09/18/23 18:04 Urine Bilirubin Negative (Negative) 09/18/23 18:04 Urine Urobilinogen Negative (Negative) 09/18/23 18:04 Ur Leukocyte Esterase Negative (Negative) 09/18/23 18:04 Adenovirus (PCR) Not Detected (NotDetected) 09/18/23 17:22 Anaplasma Smear See Comment 09/18/23 17:18 Babesia Smear See Comment 09/18/23 17:18 B. pertussis DNA (PCR) Not Detected (NotDetected) 09/18/23 17:22 B.parapertussis DNA PCR Not Detected (NotDetected) 09/18/23 17:22 Lyme Disease IgG Ab Negative (Negative) 09/18/23 17:18 Lyme Disease IgM Ab Equivocal (Negative) A 09/18/23 17:18 C. pneumoniae DNA (PCR) Not Detected (NotDetected) 09/18/23 17:22 Coronavirus OC43 (PCR) Not Detected (NotDetected) 09/18/23 17:22 Coronavirus HKU1 (PCR) Not Detected (NotDetected) 09/18/23 17:22 Coronavirus 229E (PCR) Not Detected (NotDetected) 09/18/23 17:22 SARS-CoV-2 (PCR) Not Detected (NotDetected) 09/18/23 17:22 Coronavirus NL63 (PCR) Not Detected (NotDetected) 09/18/23 17:22 Monoscreen Negative (Negative) 09/18/23 17:18 Human Metapneumovir PCR Not Detected (NotDetected) 09/18/23 17:22 Influenza Type A (PCR) Not Detected (NotDetected) 09/18/23 17:22 Influenza Type B (PCR) Not Detected (NotDetected) 09/18/23 17:22 M. pneumoniae (PCR) Not Detected (NotDetected) 09/18/23 17:22 Parainfluenza 1 (PCR) Not Detected (NotDetected) 09/18/23 17:22 Parainfluenza 2 (PCR) Not Detected (NotDetected) 09/18/23 17:22 Parainfluenza 3 (PCR) Not Detected (NotDetected) 09/18/23 17:22 Parainfluenza 4 (PCR) Not Detected (NotDetected) 09/18/23 17:22 RSV (PCR) Not Detected (NotDetected) 09/18/23 17:22 Entero/Rhino (PCR) Not Detected (NotDetected) 09/18/23 17:22 Impressions Chest X-Ray 09/18/23 17:09 XR chest 1V portable HISTORY: fever COMPARISON: Chest and abdominal series 10/19/2016. FINDINGS: The lungs are clear. Cardiac silhouette is normal in size. No pleural effusions. No pneumothorax. IMPRESSION: No acute process. ACT 112: Negative or not required by law. Electronically signed by: Cortez Jaimes M.D. 09/18/2023 5:43 PM Abdomen/Pelvis CT 09/18/23 17:[address] WITH IV CONTRAST CT DOSE: 465.84 mGy.cm HISTORY: fever, constipation TECHNIQUE: Multiaxial CT images of the abdomen and pelvis were performed following the use of intravenous contrast. A dose lowering technique was utilized adhering to the principles of ALARA. COMPARISON STUDY: Abdomen and pelvis CT 10/20/2016. FINDINGS: The lung bases are clear. No pneumoperitoneum. No pneumatosis. No acute fractures. A 1 cm hypodense lesion within the right hepatic lobe. This favors a hemangioma. Minimal periportal edema. This could be due to overhydration. The main portal vein is patent. In the gallbladder, pancreas, spleen, and adrenal glands are unremarkable. The kidneys enhance normally. No hydronephrosis. No retroperitoneal or pelvic lymphadenopathy. Normal bladder. The prostate gland is normal in size. No pelvic free fluid. Normal caliber abdominal aorta. The IVC and main portal vein appear patent. No bowel wall thickening or obstruction. Normal appendix. Liquid stool within the colon. IMPRESSION: 1. No bowel wall thickening or obstruction. 2. Normal appendix. 3. No hydronephrosis. 4. Liquid stool within the colon. This could represent a mild diarrheal illness/gastroenteritis. ACT 112: Negative or not required by law. Electronically signed by: Cortez Jaimes M.D. 09/18/2023 6:52 PM EKG as per my interpretation : rate 110, sinus tachycardia, normal axis, septal infarct, no ischemia
[2023-09-18] MEDS ORDERED: PROMETHAZINE HCL 6.25 MG in SODIUM CHLORIDE 0.9% 50 ML IV PRN (20:32)
[2023-09-18] MEDS ORDERED: IBUPROFEN 200 MG TAB PO PRN (20:32)
[2023-09-18] MEDS ORDERED: POLYETHYLENE (MIRALAX) 17 GM PACK PO PRN (20:33)
[2023-09-19] MEDS: ACETAMINOPHEN 325 MG TAB PO PRN ×2 (01:28→11:16)
[2023-09-19] MEDS: NSS + 20MEQ KCL 20 MEQ/1,000 ML BAG IV ONE ×2 (06:12→07:16)
--- NOTE | 2023-09-19 07:40 | Hospitalist Progress Note ---
Date of Service September 19, 2023 Assessment & Plan (1) Severe sepsis: Plan: Pt had an acute onset of severe symptoms of sepsis including shaking chills, fever, tachycardia, lethargy and confusion yesterday without clear cause. He is not confused today and looks slightly improved after sepsis resuscitation efforts but not much better, now reporting a persistent OTTO, neck stiffness and difficulty with the light. He is still tachycardic and slightly diaphoretic. No known tick bite with Lyme equivocal. Rule out meningitis with LP now. Cont doxy pending western blot. Blood cultures still pending. (2) Headache: Plan: Pt does drink caffeine and was encouraged to drink some today to help with any possible caffeine withdrawal. (3) Constipation: Plan: Acute, Persistent. Was taking Miralax at home. If persists, laxatives or suppositories PRN. Encourage ambulation. DVT proph: SCDs/ambulation Full Code Dispo: cont hospitalization pending clinical improvement. I spent a total [id number] coordinating, documenting, and providing care for this patient excluding time spent in the performance of separately billed services Claritza Levi DO [facility] Hospitalist Admission and Anticipated Discharge Date Admission Date: September 18, 2023 Subjective 28 yo M presents with fever, body aches, shaking chills, headache and near syncope. Acute symptoms began yesterday morning. Denies cold symptoms, respiratory symptoms, UTI symptoms, back or flank pain. He does report some neck stiffness today, sensitivity to the light and persistent OTTO that is improved with Tylenol but will come back when the Tylenol wears off. He was started on doxycycline yesterday but doesn't feel a whole lot better. He remains tachycardic and he never saw a tick or a rash. IgM remains equivocal with Western blot is pending. He recently stopped his job at [employer] last Tue and has been home with his father with whom he lives. Blood cultures are still pending. Physical Exam Physical Exam: CONSTITUTIONAL: WNWD, vitals as above, NAD but still appears ill with a sheen to his skin, tachycardia EYES: pupils are round and equal bilaterally, normal conjunctivae, no scleral icterus ENT: external ear and nose normal, MMM, OP clear. NECK: trachea midline RESPIRATORY: clear to auscultation bilaterally, no crackles, rales or wheezes, normal respiratory effort CARDIOVASCULAR: tachy rate and reg rhythm, S1 and 2 heard without murmurs, gallops or rubs, no JVD, no peripheral edema CHEST: inspection of chest was normal GASTROINTESTINAL: soft, nontender, ND, no CVA tenderness, no guarding MUSCULOSKELETAL: strength 5/5 throughout, head is normocephalic and atraumatic, can demonstrate full ROM of c spine in all planes of motion fairly easily. SKIN: warm and dry, no rashes NEUROLOGIC: CN 2-12 grossly intact, no sensory deficit, normal cognition, normal speech, no tremor PSYCHIATRIC: alert cooperative and oriented to person, place and time. Euthymic mood, makes good eye contact, language grossly intact, recent and remote memory grossly intact. Results & Data Results & Data Vital Signs (Past 12 Hours) Vital Signs Temp Pulse Pulse Resp BP Pulse Ox O2 Del Method 09/19/23 07:28 89 09/19/23 03:24 09/19/23 03:24 37.6 C H 102 H 20 111/67 96 Room Air 09/19/23 01:48 112 H 18 109/63 Room Air 09/19/23 01:16 37.3 C 09/19/23 01:00 89 09/18/23 21:20 103 H O2 Del Method 09/19/23 07:28 09/19/23 03:24 Room Air 09/19/23 03:24 09/19/23 01:48 09/19/23 01:16 09/19/23 01:00 09/18/23 21:20 Laboratory Results Short CBC 09/18/23 Range/Units 17:18 WBC 5.05 (4.8-10.8) K/ul Hgb 15.4 (14.0-18.0) g/dl Hct 42.8 (42.0-52.0) % Plt Count 222 (130-400) K/uL BMP 09/18/23 17:18 Sodium 136 Potassium 3.4 L Chloride 101 Carbon Dioxide 24 BUN 23 Creatinine 1.03 Glucose 138 H Calcium 8.9 Liver Function 09/18/23 Range/Units 17:18 Total Bilirubin 1.2 H (0.2-1.0) mg/dl AST 20 (13-39) U/L ALT 30 (7-52) U/L Alkaline Phosphatase 62 (34-104) U/L Albumin 4.5 (3.4-5.0) gm/dl Urine 09/18/23 Range/Units 18:04 Urine Color Yellow Urine Appearance Clear (Clear) Urine pH 5.5 (4.5-7.5) Ur Specific [place] 1.024 (1.000-1.030) Urine Protein Negative (Negative) Urine Glucose (UA) Negative (Negative) Medications Administered Current Inpatient Medications Acetaminophen (Acetaminophen 325 Mg Tab) 650 mg PO QID PRN PRN Reason: pain/fever Stop: 10/18/23 20:31 Last Admin: 09/19/23 01:28 Dose: 650 mg Doxycycline Hyclate (Doxycycline Hyclate 100 Mg Cap) 100 mg PO BID [facility] Stop: 09/29/23 08:59 Promethazine HCl 6.25 mg/ (Sodium Chloride) 50.25 mls @ 201 mls/hr IV Q6H PRN PRN Reason: Nausea And Vomiting Stop: 10/18/23 20:31 Potassium Chloride/Sodium Chloride (Normal Saline W/20 Meq Kcl) 20 meq in 1,000 mls @ 100 mls/hr IV .Q10H ONE; Protocol Stop: 09/19/23 15:59 Last Admin: 09/19/23 07:16 Dose: 100 mls/hr Ibuprofen (Ibuprofen 200 Mg Tab) 200 mg PO Q6H PRN PRN Reason: pain not relieved by tylenol Stop: 10/18/23 20:31 Last Admin: 09/19/23 03:22 Dose: 200 mg Polyethylene Glycol (Polyethylene (Miralax) 17 Gm Pack) 17 gm PO DAILY PRN PRN Reason: Constipation Stop: 10/18/23 20:32 Senna/Docusate Sodium (Docusate Sodium/Senna 50/8.6mg Tab) 1 tab PO QAM [facility] Stop: 10/19/23 08:59
[2023-09-19 07:48] LABS: Basophils # (auto) 0.05 K/uL (0.00-0.20); Basophils % (auto) 0.6 %; Eosinophils # (auto) 0.02 K/uL (0.00-0.50); Eosinophils % (auto) 0.2 %; Hematocrit (blood only) 43.5 % (42.0-52.0); Hemoglobin 15.1 g/dl (14.0-18.0); Immature Granulocytes # (auto) 0.04 K/uL (0.01-0.20); Immature Granulocytes % (auto) 0.5 %; Lymphocytes # (auto) 0.39 K/uL (1.20-3.40); Lymphocytes % (auto) 4.7 %; Mean Corpuscular Hemoglobin 30.3 pg (25.0-34.0); Mean Corpuscular Hgb Conc 34.7 g/dL (32.0-36.0); Mean Corpuscular Volume 87.3 fL (80.0-100.0); Mean Platelet Volume 9.6 fL (9.4-12.4); Monocytes # (auto) 0.52 K/uL (0.11-0.59); Monocytes % (auto) 6.2 %; Neutrophils # (auto) 7.34 K/uL (1.40-6.50); Neutrophils % (auto) 87.8 %; Platelet Count 169 K/uL (130-400); RDW Coefficient of Variation 12.1 % (11.5-14.5); RDW Standard Deviation 38.8 fL (36.4-46.3); Red Blood Count 4.98 M/uL (4.70-6.10); White Blood Count 8.36 K/ul (4.8-10.8)
[2023-09-19 08:15] LABS: BUN Creatinine Ratio 12.1 (10-20); Calcium 8.6 mg/dl (8.6-10.3); Creatinine Clr Calc Pharmacy 103.7 ml/min; Est GFR (African American) 134.3 ml/min; Est GFR (Non-African American) 115.9 ml/min; Magnesium 2.3 mg/dl (1.7-2.4); Potassium 4.3 mmol/L (3.5-5.1)
[2023-09-19] MEDS: DOXYCYCLINE HYCLATE 100 MG CAP PO SCH ×2 (08:18→19:56)
[2023-09-19] MEDS: DOCUSATE SODIUM/SENNA 50/8.6MG TAB PO SCH (08:18)
[2023-09-19 08:32] LABS: Estimated Average Glucose 94 mg/dl; Hemoglobin A1C 4.9 % (4.5-5.6)
--- NOTE | 2023-09-19 12:37 | Electrocardiogram Report ---
Test Reason : Blood Pressure : / mmHG Vent. Rate : 112 BPM Atrial Rate : 112 BPM P-R Int : 140 ms QRS Dur : 090 ms QT Int : 296 ms P-R-T Axes : 062 061 052 degrees QTc Int : 404 ms Sinus tachycardia Possible Left atrial enlargement Septal infarct , age undetermined Abnormal ECG No previous ECGs available Confirmed by Reji Lockwood ([id number]) on 09/19/2023 12:36:33 PM Referred By: REFERRED SELF Confirmed By:Reji Lockwood
--- NOTE | 2023-09-19 15:13 | Fluoroscopy Report ---
LUMBAR PUNCTURE UNDER FLUOROSCOPY CLINICAL HISTORY: Headache; fever PROCEDURE: Procedure and risks were explained. Informed consent was obtained. A final timeout was com pleted. The patient was placed prone on the fluoroscopic examination table. The lower lumbar region w as prepped and draped in sterile fashion. 1% lidocaine was utilized for skin anesthesia. Utilizing fluoroscopic guidance, a 22-gauge spinal needle was advanced into the intrathecal space at the L2-3 level. One permanent spot image was obtained. Approximately 8 mL of clear CSF fluid was kaleigh catrina and sent to lab for analysis. The needle was removed and Band-Aid applied. The patient tolerated the procedure well. Vital signs will be monitored postprocedure. Total fluoroscopy time 0.15 minutes. DAP is 1.22 mcGy/m2. IMPRESSION: Lumbar puncture as above. Performed, dictated, and signed by Valeriy eH PA-C; to be co-signed by Dr. Aneudy Rausch. Electronically signed by: Aneudy Rausch M.D. 09/19/2023 5:23 PM
[2023-09-19 15:34] LABS: Total Protein CSF 41.6 mg/dl (15-45)
[2023-09-19 16:09] LABS: CSF Count Tube # 3
[2023-09-19 16:10] LABS: Appearance CSF Clear; CSF Xanthrochromic No xanthochromia; Color CSF Colorless
[2023-09-19 16:11] LABS: Red Blood Cell CSF Manual 0.4 (0-); White Blood Cell CSF Manual 0.4 (0-5)
[2023-09-19 16:45] LABS: Cryptococcus neoformans/ga PCR Not Detected (NotDetected); Cytomegalovirus PCR Not Detected (NotDetected); Enterovirus PCR Not Detected (NotDetected); Escherichia coli K1 PCR Not Detected (NotDetected); Haemophilius influenzae PCR Not Detected (NotDetected); Herpes Simplex Virus 1 PCR Not Detected (NotDetected); Herpes Simplex Virus 2 PCR Not Detected (NotDetected); Human Herpes Virus 6 PCR Not Detected (NotDetected); Human Parechovirus PCR Not Detected (NotDetected); Listeria monocytogenes PCR Not Detected (NotDetected); Neisseria meningitidis PCR Not Detected (NotDetected); Streptococcus agalactiae PCR Not Detected (NotDetected); Streptococcus pneumoniae PCR Not Detected (NotDetected); Varicella Zoster Virus PCR Not Detected (NotDetected)
[2023-09-19] MEDS ORDERED: IBUPROFEN 600 MG TAB PO PRN ×2 (16:52→17:04)
[2023-09-19] MEDS ORDERED: ACETAMINOPHEN 325 MG TAB PO PRN (17:04)
[2023-09-19] MEDS: cefTRIAXone SODIUM 1,000 MG in DEXTROSE 5 % MINI-B 50 ML IV SCH (18:23)
[2023-09-19] MEDS ORDERED: SODIUM CHLORIDE 0.9% 500 ML IV ONE (19:20)
[2023-09-19] MEDS: SODIUM CHLORIDE 0.9% 1,000 ML IV SCH (20:10)
[2023-09-20] MEDS: SODIUM CHLORIDE 0.9% 1,000 ML IV SCH (03:58)
[2023-09-20 06:50] LABS: Hematocrit (blood only) 41.6 % (42.0-52.0); Hemoglobin 14.8 g/dl (14.0-18.0); Mean Corpuscular Hemoglobin 30.5 pg (25.0-34.0); Mean Corpuscular Hgb Conc 35.6 g/dL (32.0-36.0); Mean Corpuscular Volume 85.8 fL (80.0-100.0); Mean Platelet Volume 9.5 fL (9.4-12.4); Platelet Count 154 K/uL (130-400); RDW Coefficient of Variation 12.4 % (11.5-14.5); RDW Standard Deviation 38.6 fL (36.4-46.3); Red Blood Count 4.85 M/uL (4.70-6.10); White Blood Count 3.52 K/ul (4.8-10.8)
[2023-09-20 07:16] LABS: BUN Creatinine Ratio 12.8 (10-20); Calcium 8.6 mg/dl (8.6-10.3); Creatinine Clr Calc Pharmacy 120.6 ml/min; Est GFR (African American) 144.4 ml/min; Est GFR (Non-African American) 124.6 ml/min; Potassium 4.1 mmol/L (3.5-5.1)
[2023-09-20] MEDS: DOXYCYCLINE HYCLATE 100 MG CAP PO SCH (09:23)
[2023-09-20] MEDS: DOCUSATE SODIUM/SENNA 50/8.6MG TAB PO SCH (09:23)
--- NOTE | 2023-09-20 09:25 | Hospitalist Progress Note ---
Date of Service September 20, 2023 Assessment & Plan (1) Severe sepsis: Plan: Pt had an acute onset of severe symptoms of sepsis including shaking chills, fever, tachycardia, lethargy and confusion without clear cause. He is not confused today and looks slightly improved after sepsis resuscitation efforts but not much better, now reporting a persistent OTTO, neck stiffness and difficulty with the light. He is still tachycardic and slightly diaphoretic. No known tick bite with Lyme equivocal. Rule out meningitis with LP now. Cont doxy pending western blot. Blood cultures still pending. 09/20: Blood cultures negative. Borderline hypotension and leukopenia on labwork. CT a/p with poss diarrheal illness but pt reported no abdominal symptoms and had constipation x 4 days prior to admission. LP negative with Lyme and crytptococcus still pending. Lyme peripheral blood Western blot also still pending. Cont supportive care efforts and appreciate ID recommendations. (2) Headache: Plan: Pt does drink caffeine and was encouraged to drink some today to help with any possible caffeine withdrawal. (3) Constipation: Plan: Acute, Persistent. Was taking Miralax at home. If persists, laxatives or suppositories PRN. Encourage ambulation. DVT proph: SCDs/ambulation Full Code Dispo: cont hospitalization pending clinical improvement. I spent a total [id number] coordinating, documenting, and providing care for this patient excluding time spent in the performance of separately billed services Claritza Levi DO [facility] and [facility]ticipated Discharge Date Admission Date: September 18, 2023 Subjective 28 yo M presents with fever, body aches, shaking chills, headache and near syncope. Acute symptoms began yesterday morning. Denies cold symptoms, respiratory symptoms, UTI symptoms, back or flank pain. He does report some neck stiffness today, sensitivity to the light and persistent OTTO that is improved with Tylenol but will come back when the Tylenol wears off. He was started on doxycycline yesterday but doesn't feel a whole lot better. He remains tachycardic and he never saw a tick or a rash. IgM remains equivocal with Western blot is pending. He recently stopped his job at [employer] last Tue and has been home with his father with whom he lives. Blood cultures are still pending. Physical Exam Physical Exam: CONSTITUTIONAL: WNWD, vitals as above, NAD but still appears ill with a sheen to his skin, tachycardia EYES: pupils are round and equal bilaterally, normal conjunctivae, no scleral icterus ENT: external ear and nose normal, MMM, OP clear. NECK: trachea midline RESPIRATORY: clear to auscultation bilaterally, no crackles, rales or wheezes, normal respiratory effort CARDIOVASCULAR: tachy rate and reg rhythm, S1 and 2 heard without murmurs, gallops or rubs, no JVD, no peripheral edema CHEST: inspection of chest was normal GASTROINTESTINAL: soft, nontender, ND, no CVA tenderness, no guarding MUSCULOSKELETAL: strength 5/5 throughout, head is normocephalic and atraumatic, can demonstrate full ROM of c spine in all planes of motion fairly easily. SKIN: warm and dry, no rashes NEUROLOGIC: CN 2-12 grossly intact, no sensory deficit, normal cognition, normal speech, no tremor PSYCHIATRIC: alert cooperative and oriented to person, place and time. Euthymic mood, makes good eye contact, language grossly intact, recent and remote memory grossly intact. Results & Data Results & Data Vital Signs (Past 12 Hours) Vital Signs Temp Pulse Pulse Resp BP Pulse Ox O2 Del Method 09/20/23 08:04 36.5 C 76 20 99/63 L 99 Room Air 09/20/23 07:00 63 09/20/23 03:04 36.3 C L 60 16 96/60 L 98 Room Air 09/20/23 00:00 60 09/19/23 22:56 36.3 C L 78 16 96/59 L 98 Room Air Laboratory Results Short CBC 09/20/23 Range/Units 06:20 WBC 3.52 L (4.8-10.8) K/ul Hgb 14.8 (14.0-18.0) g/dl Hct 41.6 L (42.0-52.0) % Plt Count 154 (130-400) K/uL BMP 09/20/23 06:20 Sodium 139 Potassium 4.1 Chloride 111 H Carbon Dioxide 24 BUN 10 Creatinine 0.78 Glucose 93 Calcium 8.6 Medications Administered Current Inpatient Medications Acetaminophen (Acetaminophen 325 Mg Tab) 650 mg PO QID PRN PRN Reason: mild pain/fever Stop: 10/18/23 20:31 Doxycycline Hyclate (Doxycycline Hyclate 100 Mg Cap) 100 mg PO BID [facility] Stop: 09/29/23 08:59 Last Admin: 09/20/23 09:23 Dose: 100 mg Promethazine HCl 6.25 mg/ (Sodium Chloride) 50.25 mls @ 201 mls/hr IV Q6H PRN PRN Reason: Nausea And Vomiting Stop: 10/18/23 20:31 Ceftriaxone Sodium 1,000 mg/ (Dextrose) 50 mls @ 100 mls/hr IV Q24H [facility]; Protocol Stop: 09/21/23 17:14 Last Infusion: 09/19/23 19:24 Dose: Infused Sodium Chloride (Nss) 1,000 mls @ 125 mls/hr IV .Q8H [facility] Stop: 09/20/23 11:59 Last Admin: 09/20/23 03:58 Dose: 125 mls/hr Ibuprofen (Ibuprofen 600 Mg Tab) 600 mg PO Q6H PRN PRN Reason: Moderate Pain (Scale 4, 5, 6) Stop: 10/18/23 20:31 Last Admin: 09/19/23 17:46 Dose: 600 mg Polyethylene Glycol (Polyethylene (Miralax) 17 Gm Pack) 17 gm PO DAILY PRN PRN Reason: Constipation Stop: 10/18/23 20:32 Senna/Docusate Sodium (Docusate Sodium/Senna 50/8.6mg Tab) 1 tab PO QAWW [facility] Stop: 10/19/23 08:59 Last Admin: 09/20/23 09:23 Dose: 1 tab
--- NOTE | 2023-09-20 15:20 | Infectious Disease Consult ---
Date of Service September 20, 2023 Telehealth Information I performed this visit using a real-time telehealth connection between my location and the patients location ([facility]). After connecting through interactive tele-video, patient was identified by name and date of and/or wristband check.Patient (or authorized healthcare home office representative) was informed that this was a telemedicine visit and it was being conducted confidentially over secure lines. My office door was closed and no one else was present in the room with me.Patient (or authorized healthcare home office representative) provided consent to proceed with the visit, expressed an understanding of privacy and security of the telemedicine visit, and gave permission to have a hospital home office representative in the room in order to assist with the visit and to conduct portions of the visit, as needed. I informed the patient (or authorized healthcare home office representative) that I reviewed their record and presented the opportunity for them to ask any questions regarding the visit today. The patient agreed to participate. Assessment & Plan (1) Fever: (2) Headache: (3) Dizziness: Plan My concern for infection is low. Also, to classify as fever, the patient should have a reading of 38 C twice at least 1 hour apart over 1 reading of 38.3. Therefore, according to this definition, the patient did not have any fever, at least while inpatient. Moreover, Chest x-ray and CT abdomen pelvis were within normal limits and CSF was clean. Therefore, I would recommend stopping IV ceftriaxone today and continue doxycycline alone. I think it would be reasonable to keep him on Doxycycline alone pending the tickborne panel. I also got his permission to check for STIs, so please send for HIV, hepatitis viral panel and syphilis screen. If there is any suspicion of any drug use (especially with Hx of mood disorder), please send for toxicology screen. Finally, if he insists on going home, I am okay with him going out on Doxycycline for now until we get all results. I will keep him on my list and F/U on the labs. Thank you for consulting ID. We will continue to follow. History of Present Illness History of Present Illness Mr. Bronson is a 28 yo young man with medical hx of mood disorder who was admitted to [facility] on 09/18 because of fever and chills. According to the medical records and the patient report, he started having fevers, chills, generalized body aches and headache on the day of presentation. He also mentioned feeling very dizzy with near passing out. Medical records mention that the father also noticed that his son was lethargic and confused on the day of presentation. The patient has been suffering from constipation over the last week prior to presentation which resolved after being treated with MiraLAX. On presentation, he was noticed to have fever of 38, tachycardia of 104 blood pressure of 118/71 and saturating 99% at room air. Initial work-up showed hypokalemia of 3.4, elevated lactic acid at 2.9, low magnesium of 1.5 and total bilirubin of 1.2. CT abdomen and pelvis did not show any abnormalities except for liquid stool within the colon. Eventually, he had a lumbar puncture on 09/19 which showed 0.4 nucleated cells with negative meningitis encephalitis panel. Respiratory pathogen panel was also negative. ID team was consulted for further recommendations and to help with the management of presumed sepsis. Allergies Allergy/AdvReac Type Severity Reaction Status Date / Time Penicillins Allergy Intermediate Rash Verified 09/18/23 18:56 azithromycin [From Zithromax] Allergy Unknown Unknown Verified 09/18/23 18:56 Home Medications Medication Instructions Recorded Confirmed Type acetaminophen 500 mg tablet 1,000 mg PO Q6H PRN Fever Or Pain 05/24/20 09/18/23 History (Tylenol Extra Strength) diphenhydramine HCl 25 mg capsule 50 mg PO Q6H PRN Allergic Reaction 05/24/20 09/18/23 History (Benadryl) ibuprofen 200 mg tablet 800 mg PO Q8H PRN Fever Or Pain 05/24/20 09/18/23 History polyethylene glycol 3350 17 17 g PO DAILY 09/18/23 09/18/23 History gram/dose oral powder (Miralax) Patient History Medical History (Updated 09/20/23 @ 15:19 by Greg Kebede MD) Palpitations Cryptic tonsil Sleep apnea Depression Nausea, vomiting, and diarrhea Surgical History No pertinent past surgical history Family History Other Crohn's disease Hypertension Social History Smoking Status: Never smoker Hx Alcohol Use: Yes Hx Substance Use: No Preferred Language: Gibraltarian Communication Ability: Effective Fixture Maker Required: No Beliefs That Will Affect Care: None Current Living Situation: Family Other Information That Helps Us Care for You: No Feels Safe at Home: Yes Safety Concerns: Feels Safe At This Time Assistive Devices: None Review of Systems Constitutional: nofatigue, no fever, or chills HEENT:no sore throat, no nasal discharge Cardiovascular:no chest pain, or palpitations Respiratory:no shortness of breath, no cough Gastrointestinal:No nausea, vomiting, diarrhea, or abdominal pain. Chronic constipation :No dysuria or hesitancy, no urinary discharge Musculoskeletal/Skin: no muscle pain or rash Neurologic: Headache and dizziness resolved Physical Exam Couldn't be performed as the consult was conducted via telemed. Results & Data Vital Signs (Past 12 Hours) Vital Signs Temp Pulse Pulse Resp BP Pulse Ox O2 Del Method 09/20/23 15:13 36.8 C 83 18 110/73 98 Room Air 09/20/23 11:12 36.6 C 75 18 110/71 99 Room Air 09/20/23 08:04 36.5 C 76 20 99/63 L 99 Room Air 09/20/23 07:00 63 Laboratory Results 09/18: 2 sets of blood culture negative to date 09/18: Respiratory pathogen panel negative 09/18: Lyme screen, Babesia PCR, and Anaplasma PCR pending 09/19: CSF meningitis encephalitis panel negative 09/19: CSF culture negative to date Diagnostic Findings CT abdomen pelvis on 09/18: 1. No bowel wall thickening or obstruction. 2. Normal appendix. 3. No hydronephrosis. 4. Liquid stool within the colon. This could represent a mild diarrheal illness/gastroenteritis.
--- NOTE | 2023-09-20 16:06 | Discharge Summary ---
Discharge Summary Date of Service September 20, 2023 Notes For Next Care Provider followup pending labs from final day of hospitalization with patient. HIV, GC chlamydia, RPR, utox, hepatitis panel, Lyme Western blot Medication Changes From Visit NEW doxycycline Admission HPI Per Admitting Provider History obtained from patient, family, and records. Medical history significant for mood disorder. 4 days history of constipation symptoms more than usual. No actual abdominal pain. 2 bowel movements after MiraLAX intake today. Hematochezia on wiping. No hematemesis or coffee-ground emesis. Patient later noted fever, chills, generalized body aches, nausea, and tingling of the hands. No chest pain, no cough, no SOB, no headache symptoms. Patient like he was going to pass out. No recollection of recent tick bites although there are ticks at patient's home. SBP 90s upon arrival at the ER. Vancomycin and cefepime administered at the ER for sepsis. Medical History as above Surgical History : None Family History : IBD, alcoholism Personal/Social history : Non-smoker, no EtOH intake, [employer] employee Principal Dx & Hospital Course #1 = Principal Diagnosis (1) Severe sepsis: (2) Acute Lyme disease: (3) Acute lactic acidosis: (4) Headache: (5) Fever: (6) Constipation: (7) Dizziness: (8) Depression: Plan Patient is a 31-year-old man with history of mood disorder admitted on 09/18 secondary to fevers and chills. Generalized body aches were also noted and he was very dizzy with almost passing out. Per notes father also mention he was lethargic and confused on day of presentation. Constipation was reported several days prior to arrival without resolution despite treatment with MiraLAX [id number]. CT abdomen pelvis did not show any abnormalities except for liquid stool within the colon. Lactic acid was elevated 2.9 which was improved with resuscitation with IV fluids. He had a lumbar puncture on 09/19 which revealed no evidence of meningitis or encephalitis. Respiratory pathogen panel was also negative. Infectious disease was contacted for help with understanding etiology of presumed sepsis on admission. Of note Lyme panel was pulled with IgG negative and IgG and equivocal with Western blot pending at time of discharge. He was initially started on doxycycline with no significant improvement overnight and Rocephin was added with improvement clinically. Per infectious disease the concern for infection is low at this point. Rocephin was stopped and it was felt reasonable to keep him on doxycycline alone pending the tickborne panel results. HIV, hepatitis viral panel, syphilis screen, GC chlamydia and urine tox screen was also pulled and pending at time of discharge. Close primary care follow-up is recommended to update patient on these results. Blood culture was negative at time of discharge. Patient was encouraged to stay for continued rehydration but preferred to rehydrate orally at home. He had made significant clinical improvement since admission. Discharged in stable condition with close primary care follow-up recommended. Constipation and headache resolved prior to discharge. Updated Medication List Medication Instructions Recorded Confirmed Type acetaminophen 500 mg tablet 1,000 mg PO Q6H PRN Fever Or Pain 05/24/20 09/18/23 History (Tylenol Extra Strength) diphenhydramine HCl 25 mg capsule 50 mg PO Q6H PRN Allergic Reaction 05/24/20 09/18/23 History (Benadryl) ibuprofen 200 mg tablet 800 mg PO Q8H PRN Fever Or Pain 05/24/20 09/18/23 History polyethylene glycol 3350 17 17 g PO DAILY 09/18/23 09/18/23 History gram/dose oral powder (Miralax) doxycycline hyclate 100 mg capsule 100 mg PO BID #20 caps 09/20/23 Rx Hospital Stay Data Consultations 09/18/23 19:21 ED Decision to Admit Stat 09/19/23 17:59 Consult Infectious Diseases Routine Diagnostic Imagining Performed 09/18/23 17:21 CT abd pelvis IV con only Stat 09/19/23 14:08 IR lumbar puncture diagnostic Routine Discharge Instructions Given to Patient (Per Discharging Provider) Please continue taking doxycycline for the full course until you are able to followup with your primary care physician and get updated on the results of labwork still pending at time of your discharge. Please continue to drink Gatorade and stay hydrated with water. Take it easy for the next week, preferred you do not work during this time until clered by your primary care physician on followup. Please follow-up with your PCP in one week. Someone will contact you tomorrow by phone to set this up. Your blood cultures were negative at the time of discharge from the hospital. It was a pleasure taking care of you! Please call if you have any questions or problems. You can reach a [facility] hospitalist on duty at [facility] 24 hours a day by calling [phone]. Take care of yourself. DO [facility] Total Time Total Time Spent Total Time Spent (In Minutes): 60
--- NOTE | 2023-09-20 16:16 | Communication Note ---
Date of Service: September 20, 2023 I spoke with patient's father with patient's permission this afternoon around 4:15pm and updated him on all the findings and the plan. He verbalized und erstanding and thanked me for my time. sms
[2023-09-20 16:34] LABS: Amphetamines+Metham, Urine Neg (Neg); Barbiturates, Urine Neg (Neg); Benzodiazepine, Urine Neg (Neg); Cocaine, Urine Neg (Neg); MDMA (Ecstacy), Urine Neg (Neg); Marijuana, Urine Neg (Neg); Methadone, Urine Neg (Neg); Opiate, Urine Neg (Neg); Phencyclidine, Urine Neg (Neg)
[2023-09-20] MEDS: cefTRIAXone SODIUM 1,000 MG in DEXTROSE 5 % MINI-B 50 ML IV SCH (16:39)
[2023-09-21 09:02] LABS: 18KDIGG Band NON-REACTIVE; 23KDIGG Band NON-REACTIVE; 23KDIGM Band NON-REACTIVE; 28KDIGG Band NON-REACTIVE; 30KDIGG Band NON-REACTIVE; 39KDIGG Band NON-REACTIVE; 39KDIGM Band NON-REACTIVE; 41KDIGG Band NON-REACTIVE; 41KDIGM Band NON-REACTIVE; 45KDIGG Band NON-REACTIVE; 58KDIGG Band NON-REACTIVE; 66KDIGG Band NON-REACTIVE; 93KDIGG Band NON-REACTIVE; Lyme Antibodies, WB IgG NEGATIVE (NEGATIVE); Lyme Antibodies, WB IgM NEGATIVE (NEGATIVE)
[2023-09-22 13:01] LABS: Chlam trach RNA(Genit,Ureth,Ur Not Detected (NotDetected); GC(Neis gon)RNA(Genit,Ureth,Ur Not Detected (NotDetected)
[2023-09-22 13:42] LABS: HBSAG NON-REACTIVE (NON-REACTIVE); Hepatitis A Antibody IgM NON-REACTIVE (NON-REACTIVE); Hepatitis B Core Antibody IgM NON-REACTIVE (NON-REACTIVE)
[2023-09-22 18:48] LABS: Babesia microti DNA Not Detected (Not Detected)
[2023-09-22 19:02] LABS: Cryptococcal Antigen Not Detected (Not Detected); Source CSF
[2023-09-22 19:17] LABS: Lyme DNA PCR CSF or Synovial Not Detected (Not Detected); Lyme DNA Source CSF
== END 2023-09-20 17:39 | disposition home or self-care (01) | DRG 872 ==
LOC: ED 16:54 → SUATTDRO 20:30 → EDINP 20:30 → INTOOBSV 20:30 → 2N 09-19 16:21